=== PATIENT | male | born 2000 | race Caucasian/White ===

== ENCOUNTER 2023-05-03 11:09 | Emergency (ER) | payer BC, SELFPAY ==
[2023-05-03 11:09] VITALS: PULSE 85; RESP 16; TEMP 36.4; O2SAT 100
[2023-05-03 12:15] LABS: Appearance Urine Clear (Clear); Bilirubin Urine Negative (Negative); Blood Urine Negative (Negative); Color Urine Yellow (Yellow); Glucose Urine UA Negative (Negative); Ketones Urine Negative (Negative); Leukocyte Esterase Ur Negative LEU/UL (Negative); Nitrate Urine Negative (Negative); Protein Urine 2+ mg/dL (Negative); Specific Grav Ur >= 1.030 (1.001-1.035); Urobilinogen Urine 0.2 mg/dL (<2.0)
[2023-05-03 12:18] LABS: Add Urine Microscopic? YES
[2023-05-03 15:27] LABS: Chlamydia trachomatis NOT DETECTED (NOT DETECTE); Neisseria gonorrhoeae PCR NOT DETECTED (NOT DETECTE)
--- NOTE | 2023-05-03 15:33 | ED.MALEGU ---
HPI - Male Genitourinary General Chief complaint: Urogenital-Male Stated complaint: std check Time Seen by Provider: 05/03/23 11:21 History of Present Illness HPI Narrative: Patient is a 22-year-old male who presents ER with concerns for sexual transmitted infection. Reports he had sex with a woman 3 to 4 months ago and then discovered that she had potentially given other people STDs and potentially himself. He is unsure which one. No urinary frequency urgency or dysuria. No urethral discharge. No abnormal rash to glans or penile shaft. Related Data Allergies Allergy/AdvReac Type Severity Reaction Status Date / Time No Known Allergies Allergy Unverified 12/11/18 01:40 Review of Systems Genitourinary: Genitourinary: Reports no additional male genitourinary complaints Integumentary/Breasts: Skin/Breast: Reports system reviewed and no additional complaints, except as docu PMFSH Past Medical History Medical History (Updated 05/03/23 @ 18:43 by Tim Woodson MD) Healthy adult male Surgical History Surgical History (Updated 05/03/23 @ 18:43 by Tim Woodson MD) No history of previous surgery Exam Narrative: GENERAL: Well-appearing, well-nourished, and in no acute distress. HEAD: Normocephalic, atraumatic. EXTREMITIES: Normal range of motion. Normal strength. NEURO:eficits. Alert and oriented x3. PSYCH: Normal mood and affect. Course Course Emergency Course: STD testing negative. Patient discharged home. Vital Signs Vital signs: Vital Signs Temperature 97.5 F L 05/03/23 11:09 Pulse Rate 85 05/03/23 11:09 Respiratory Rate 16 05/03/23 11:09 Pulse Oximetry 100 05/03/23 11:09 Oxygen Delivery Room Air 05/03/23 11:09 Temperature 97.5 F L 05/03/23 11:09 Pulse Rate 85 05/03/23 11:09 Respiratory Rate 16 05/03/23 11:09 Pulse Oximetry 100 05/03/23 11:09 Oxygen Delivery Room Air 05/03/23 11:09 MDM - Male Genitourinary Lab Data Labs: Lab Results 05/03/23 Range/Units 12:07 Urine Color Yellow (Yellow) Urine Appearance Clear (Clear) Urine pH 6.0 (5.0-9.0) Ur Specific [place] >= 1.030 (1.001-1.035) Urine Protein 2+ H (Negative) mg/dL Urine Glucose (UA) Negative (Negative) mg/dL Urine Ketones Negative (Negative) mg/dL Ur Blood (Man) Negative (Negative) Urine Nitrate Negative (Negative) Urine Bilirubin Negative (Negative) Urine Urobilinogen 0.2 (<2.0) mg/dL Leukocyte Esterase Rfl Negative (Negative) AARON/UL C. trachomatis (PCR) Not detected (NOT DETECTE) N. gonorrhoeae (PCR) Not detected (NOT DETECTE) Urine Characteristics Clear Discharge Plan Discharge Clinical Impression: Concern about STD in male without diagnosis Patient Disposition: Home, Self-Care Condition: Stable Instructions: Safe Sex Practices (ED) Additional Instructions: There is no evidence of sexually transmitted infection on your evaluation today. Make sure that you use protection when having sex to prevent potential transmission. Return to the ER if you have additional concerns. Follow-up/Referrals: PHYSICIAN NOT ON STAFF,NONSTAFF [Primary Care Provider] - 1 Week Stand Alone Forms: Work/School Release IP
== END 2023-05-03 15:40 | disposition home or self-care (01) ==
PROVIDERS: Emergency Provider Emergency Medicine
DX: Z20.2 Contact with and (suspected) exposure to infections with a predominantly sexual mode of transmission (principal)
CPT/HCPCS: 81001; 87491; 87591; 99283

== ENCOUNTER 2025-04-11 16:05 | Emergency (ER) | payer BC, SELFPAY ==
[2025-04-11 16:12] VITALS: BP 141/98; PULSE 106; RESP 16; TEMP 36.4; O2SAT 97
--- OUTSIDE RECORDS SUMMARY | 2025-04-11 16:36 | XMS_ITS | Clinical Summary ---
Author Organization [facility] [employer] Address [address] [place] [address] Care Team Providers Care Bobbin Washer Name Role Phone Severino Jackson STATION MECHANIC APPRENTICE-GREASE REMOVER Unavailable [phone] Source Comments [facility] [employer],non-owned Affiliates and Associated Physician Practices is amultiple site organization consisting of ambulatory clinics and hospital sitesin [place], [place], [place] and [place]. This disclosure is being madepursuant to the Care Everywhere program and may not contain all information available regarding this patient. Last updated 18.[facility] Allergies No known active allergies Medications * This document contains information received from the source organization and may not represent a complete record from that organization. * Be aware that medications may not be up to date on this document. Alwaysverify current medications with the patient. FLUoxetine (PROzac) 40 MG capsule Take 1 (one) capsule by mouth once daily 30 capsule 01/08/2025 11:39 AM CDT 01/08/2025 Active Active Problems Problem Noted Date Diagnosed Date Suicide attempt 01/04/2025 Family History Medical History Relation Name Comments Arrhythmia Neg Hx CVA<55(male) Neg Hx CVA<65(female) Neg Hx Cardiomyopathy Neg Hx Congenital Heart defect Neg Hx Heart Surgery Neg Hx Long QT Syndrome Neg Hx [place]<55(male) Neg Hx [place]<65(female) Neg Hx Marfan Syndrome Neg Hx Pacemaker Neg Hx Sudd. <30 Neg Hx Social History Tobacco Use Types Packs/Day Years Used Date Smoking Tobacco: Never Alcohol Use Standard Drinks/Week Comments Not Asked 0 (1 standard drink = 0.6 oz pur e alcohol) AUDIT-C Answer Date Recorded Q1: How often do you have a drink containing alcohol? Never 01/04/2025 Q2: How many drinks containi ng alcohol do you have on a typical day when you are drinking? Patient does not drink Q3: How often do you have si x or more drinks on one occasion? Never 01/04/2025 Overall Financial Resource Strain (CARDIA) Answe r Date Recorded How hard is it for you to pa y for the very basics like food, housing, medical care, and heating? Somewhat hard 01/04/2025 [facility] [place] of Occupat ional Health - Occupational Stress Questionnaire Answer Date Recorded Do you feel stress - tense, restless, nervous, or anxious, or unable to sleep at night because your mind is troubled all the time - these days? Very much 01/04/2025 Hunger Vital Sign Answer Date Recorded Within the past 12 months, y ou worried that your food would run out before you got the money to buy more. Sometimes true Within the past 12 months, t he food you bought just didn't last and you didn't have money to get more. Sometimes true 06/2025 PRAPARE - Transportation Answer Date Re corded In the past 12 months, has l ack of transportation kept you from medical appointments or from getting medications? No 12/24 In the past 12 months, has l ack of transportation kept you from meetings, work, or from getting things needed for daily living? No 01/04/2025 Housing Stability Vital Sign Answer Chapito e Recorded In the last 12 months, was t here a time when you were not able to pay the mortgage or rent on time? Yes 01/04/2025 In the past 12 months, how m any times have you moved where you were living? 1 01/04/2025 At any time in the past [address] [facility], were you homeless or living in a penitentiary (including now)? 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 Gender Identity Not on file Sexual Orientation Not on file Last Filed Vital Signs Vital Sign Reading Time Taken Comments Blood Pressure 116/76 01/08/2025 8:21 AM CDT Pulse 78 01/08/2025 8:21 AM CDT Temperature 36.2 C (97.1 F) 01/08/2025 8:21 AM CDT Respiratory Rate 18 01/08/2025 8:21 AM CDT Oxygen Saturation 99% 01/08/2025 8:21 AM CDT Inhaled Oxygen Concentration - - Weight 103.8 kg (228 lb 13.4 oz) 03/25/2016 1:13 PM CDT Height 182.9 cm (6') 01/04/2025 5:56 PM CDT Body Mass Index 32.04 03/25/2016 1:13 PM CDT Plan of Treatment Health Maintenance Due Date Last Done Comments HIV SCREENING 2015 HPV VACCINE (1 - Male 3-dose series) 2015 HEPATITIS C SCREENING 08/14/2018 DTAP/TDAP/TD VACCINES (1 - Tdap) 2019 HEPATITIS B VACCINE (1 of 3 - 19+ 3-dose series) 2019 DEPRESSION SCREENING 07/26/2024 COVID-19 VACCINE (2 - 2024-2 6 season) 2025 07/31/2021 INFLUENZA VACCINE (#1) 2025 8, 05/28/2014, 05/26/2014 ZOSTER VACCINE (1 of 2) 2050 HIB VACCINE Aged Out No longer eligi ble based on patient's age to complete this topic MENINGOCOCCAL (Group B) VACCINE SHARED DECISION-MAKING Aged Out No longer eligible based on patient's age to complete this topic MENINGOCOCCAL GROUPS A/C/Y/W VACCINE Aged Out No longer eligible b ased on patient's age to complete this topic PNEUMOCOCCAL VACCINE Aged Out No long er eligible based on patient's age to complete this topic Insurance [facility] MEDICAID Advance Directives * Full Code (Latest Code Status on File) Date Activated Date Inactivated Comments 01/04/2025 5:10 PM 01/08/2025 3:19 PM Care Teams Bobbin Washer Relationship Specialty Start Date End Date Severino Jackson APRN-LIZETTE [address] [place] [phone] PCP - Attributed-BC[place] Medicaid [place] 01/23/21
--- NOTE | 2025-04-11 17:04 | ED_ITS ---
HPI - Back Pain/Injury General Chief Complaint: Back Pain/Injury Stated Complaint: back pain Time Seen by Provider: 04/11/25 16:36 Source: patient Mode of arrival: ambulatory Limitations: no limitations History of Present Illness HPI Narrative: 24 years old white male, works with a lot of heavy material including pushing and lifting for a while, developed left lower back pain radiating to the back of the left lower extremity intermittent numbness of the toes on the left side for 1 month, get worse at night 20 try to sleep. Patient denies any trauma. He denies any history of back pain in the past. Patient denies bowel dysfunction, bladder dysfunction, altered sensation, focal weakness, or saddle numbness, MD elicited complaint: back pain Related Data Allergies Allergy/AdvReac Type Severity Reaction Status Date / Time No Known Allergies Allergy Verified 04/11/25 16:14 Review of Systems Review of Systems: All systems reviewed & are unremarkable except as noted in HPI and below PMFSH Past Medical History Medical History Healthy adult male Surgical History Surgical History No history of previous surgery Exam Narrative: General appearance: Well-developed, well-nourished Skin: Normal color Head: Normocephalic, nontraumatic Eyes: Clear conjunctiva ENT: Oropharynx normal, ears normal, nose normal Neck: Supple, nontender Chest and respiratory: Airway patent, no respiratory distress, no accessory muscle use Heart: Regular rate/rhythm Abdomen: Soft, nontender, no organomegaly, quiet bowel sounds Vascular: Normal peripheral pulses, normal capillary refill. Musculoskeletal: Limited range of motion of the left lower extremity, tenderness left lower back, no bruises or swelling or rash Neurologic: Alert and oriented ?3, STRUCTURAL BIOLOGIST is normal as tested, no gross motor deficit, positive leg straight raising test Course Vital Signs Vital signs: Vital Signs Temperature 36.4 C 04/11/25 16:12 Pulse Rate 106 H 04/11/25 16:12 Respiratory Rate 16 04/11/25 16:12 Blood Pressure 141/98 H 04/11/25 16:12 Pulse Oximetry 97 04/11/25 16:12 Oxygen Delivery Room Air 04/11/25 16:12 Temperature 36.4 C 04/11/25 16:12 Pulse Rate 106 H 04/11/25 16:12 Respiratory Rate 16 04/11/25 16:12 Blood Pressure 141/98 H 04/11/25 16:12 Pulse Oximetry 97 04/11/25 16:12 Oxygen Delivery Room Air 04/11/25 16:12 MDM - Back Pain/Injury MDM Narrative Medical decision making narrative: Lumbar radiculopathy is my concern. Blood workup or imaging are not required at this time. Discharged on Decadron, follow-up with neurosurgeon Of work for 2 days Differential Diagnosis Differential diagnosis: Likely other (As above) Critical Care Time Critical Care Time Critical Care Time: No Discharge Plan Discharge Clinical Impression: Lumbar radiculopathy Patient Disposition: Home Condition: Stable Instructions: Lumbar Radiculopathy (ED) Additional Instructions: Return if symptoms are worsening , call your family physician for appointment, take Tylenol as as needed for aches and pain, continue home medications. Patient Language: Cambodian Prescriptions: New dexamethasone 4 mg tablet 4 mg PO TID Qty: 15 0RF Follow-up/Referrals: PHYSICIAN NOT ON STAFF,NONSTAFF [Non-Staff] Radha Leblanc MD [Physician, Neurosurgery] - 04/16/25 Stand Alone Forms: Work/School Release IP
--- OUTSIDE RECORDS SUMMARY | 2025-04-11 17:06 | XMS_ITS | Clinical Summary ---
Author Organization [facility] [employer] Address [address] [place] [address] Care Team Providers Care Hydroelectric Operator Name Role Phone Severino Jackson INDUSTRIAL WASTE INSPECTOR-PLUNGER SHOVEL OPERATOR Unavailable [phone] Source Comments [facility] [employer] [facility],non-owned Affiliates and Associated Physician Practices is amultiple site organization consisting of ambulatory clinics and hospital sitesin [place], [place], [place] and [place]. This disclosure is being madepursuant to the Care Everywhere program and may not contain all information available regarding this patient. Last updated 18.[employer] [facility] Allergies No known active allergies Medications * [...] Neg Hx Long QT Syndrome Neg Hx AL<55(male) Neg Hx AL<65(female) Neg Hx Marfan Syndrome Neg Hx Pacemaker [...] medical care, and heating? Somewhat hard 01/04/2025 [facility] [place] of Occupat ional Health - Occupational Stress [...] any time in the past 12 m [facility], were you homeless or living in a half-way (including now)? 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
[2025-04-11] MEDS: dexAMETHasone SOD PHOS INJ 10 MG/ML 1 ML VIAL IM (17:23)
== END 2025-04-11 17:30 | disposition home or self-care (01) ==
PROVIDERS: Emergency Provider Emergency Medicine
DX: M54.16 Radiculopathy, lumbar region (principal)
CPT/HCPCS: 96372; 99283; J1100

== ENCOUNTER 2025-04-20 15:27 | Emergency (ER) | payer BC, SELFPAY ==
--- NOTE | ~2025-04-20 | CT_ITS ---
EXAMINATION: CT lumbar spine wo con DATE: 04/20/2025 18:04 INDICATION: Lumbar pain TECHNIQUE: Computed tomography (CT) of the lumbar spine was performed without intravenous contrast. The dose-length product was 931.94 mGy-cm. Automated exposure control and iterative reconstruction technique were employed. COMPARISON: None FINDINGS: There is grade 1 spondylolisthesis at L5-S1 secondary to bilateral spondylolysis. There is disc narrowing at L5-S1. Vertebral body heights are maintained. The L4-5 disc spaces mildly decreased. No acute fracture or traumatic malalignment. There is mild dextrocurvature, possibly positional. IMPRESSION: 1. No acute abnormality of the lumbar spine. 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 3: Mild lumbar spondylosis. Reviewed, dictated and finalized at location O.
--- OUTSIDE RECORDS SUMMARY | 2025-04-20 15:29 | XMS_ITS | Clinical Summary ---
Author Organization [facility] [employer] Address [address] [place] [address] Care Team Providers Care Adjunct Latin Professor Name Role Phone Severino Jackson TOOL SETTER APPRENTICE-SOLAR WATER HEATER INSTALLER Unavailable [phone] Source Comments [facility] [employer],non-owned Affiliates and Associated Physician Practices is amultiple site organization consisting of ambulatory clinics and hospital sitesin [place], [place], [place] and [place]. This disclosure is being madepursuant to the Care Everywhere program and may not contain all information available regarding this patient. Last updated 18.[employer] Allergies No known active allergies Medications * [...] Neg Hx Long QT Syndrome Neg Hx AK<55(male) Neg Hx AK<65(female) Neg Hx Marfan Syndrome Neg Hx Pacemaker [...] medical care, and heating? Somewhat hard 01/04/2025 [facility] [place] of Occupat ional Health - Occupational Stress [...] any time in the past 12 m [facility], were you homeless or living in a correction (including now)? 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
[2025-04-20 15:42] VITALS: BP 123/71; PULSE 86; RESP 16; TEMP 36.2; O2SAT 96
--- OUTSIDE RECORDS SUMMARY | 2025-04-20 17:06 | XMS_ITS | Clinical Summary ---
Author Organization [facility] [employer] Address [address] [place] [address] Care Team Providers Care Ear Specialist Name Role Phone Severino Jackson BALLER TENDER-SCREEN TACKER Unavailable [phone] Source Comments [facility] [employer],non-owned Affiliates and Associated Physician Practices is amultiple site organization consisting of ambulatory clinics and hospital sitesin [place], [place], [place]. This disclosure is being madepursuant to the Care Everywhere program and may not contain all information available regarding this patient. Last updated 18.[employer] Allergies No known active allergies Medications * This document contains information received from the source organization and may not represent a complete record from that organization. * Be aware that medications may not be up to date on this document. Always verify current medications with the patient. FLUoxetine (PROzac) [...] Neg Hx Long QT Syndrome Neg Hx IA<55(male) Neg Hx IA<65(female) Neg Hx Marfan Syndrome Neg Hx Pacemaker [...] medical care, and heating? Somewhat hard 01/04/2025 [facility] [place] of Occupat ional Health - Occupational Stress [...] any time in the past 12 m [facility], were you homeless or living in a long term (including now)? 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
--- NOTE | 2025-04-20 17:27 | ED_ITS ---
HPI - Extremity Injury (Lower) General Chief Complaint: Extremity Injury, Lower Stated Complaint: left leg problems Time Seen by Provider: 04/20/25 16:56 Source: patient and old records reviewed Mode of arrival: ambulatory Limitations: no limitations History of Present Illness HPI Narrative: Patient is a 24-year-old male who presents the ED with report of left lower back pain, radiating down his left lower extremity. Reports pain has been ongoing for the past 2 weeks. Was seen in the ED here on 04/11, Rx'd dexamethasone, took this with improvement. Had to perform heavy/strenuous activity with work over the pas t 2 days and reports having worsening pain now. Reports pain present in his left lower back, radiates down his left lower extremity. Denies numbness/tingling, saddle anesthesia, bowel or bladder incontinence. Patient has not taken anything for pain today. Related Data Allergies Allergy/AdvReac Type Severity Reaction Status Date / Time No Known Allergies Allergy Verified 04/20/25 15:29 Review of Systems Review of Systems: All systems reviewed & are unremarkable except as noted in HPI. All systems reviewed & are unremarkable except as noted in HPI and below PMFSH Past Medical History Medical History Healthy adult male Surgical History Surgical History No history of previous surgery Exam Narrative: GENERAL: Well appearing, obese with BMI of 34.4, non-toxic, in no acute distress. HEAD: Normocephalic, atraumatic. RESPIRATORY: Airway patent, respirations nonlabored. CARDIOVASCULAR: Regular rate and rhythm without murmurs, rubs, or gallops. Pedal pulses intact. MUSCULOSKELETAL: Moves all extremities. No gross deformities. Positive straight leg raise on left. No significant reproducible tenderness throughout left lower extremity. Tenderness to palpation left SI region, left lumbar paraspinal musculature. No palpable bony deformities or step-offs. Sensation intact. SKIN: Warm, dry, normal color. NEURO: A&O X3. Speech clear. No ataxic movements. PSYCHIATRIC: Appropriate mood and affect. Normal interaction. Course Vital Signs Vital signs: Vital Signs Temperature 97.1 F L 04/20/25 15:42 Pulse Rate 86 04/20/25 15:42 Respiratory Rate 16 04/20/25 15:42 Blood Pressure 123/71 04/20/25 15:42 Pulse Oximetry 96 04/20/25 15:42 Temperature 97.1 F L 04/20/25 15:42 Pulse Rate 86 04/20/25 15:42 Respiratory Rate 16 04/20/25 15:42 Blood Pressure 123/71 04/20/25 15:42 Pulse Oximetry 96 04/20/25 15:42 MDM - Extremity Injury (Lower) MDM Narrative Medical decision making narrative: Patient?s pain is positional and localized to paraspinal muscles without signs of cord compression or cauda equina. Normal neurologic exams. No red flag symptoms. No fever noted and no significant risk factors for osteomyelitis or spinal epidural abscess. No symptoms or signs to suggest pain is referred from abdominal or source. CT of lumbar spine without acute findings, very mild spondylosis changes. Patient given Toradol, Tylenol, Robaxin, lidocaine patch in the ED. On re-evaluation, feeling somewhat improved. Patient ambulates with a steady gait and is felt to be a reasonable candidate for continued outpatient management. Discussed high likelihood of musculoskeletal etiology, continued management of such. Will discharge with muscle relaxers, lidocaine patches for home, advised patient to continue Tylenol/ibuprofen around the clock as needed for pain, recommended limiting strenuous activity. Given return precautions. Will again refer to neurosurgery. Discharged in stable condition. Medical Records Attestation: I reviewed the patient's medical records. Imaging Data Attestation: I personally reviewed and interpreted this imaging study as follows: Radiologist's impression: ITS Impressions Lumbar Spine CT 04/20/25 18:08 IMPRESSION: 1. No acute abnormality of the lumbar spine. 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 3: Mild lumbar spondylosis. Discharge Plan Discharge Clinical Impression: Left lumbar radiculopathy Strain of lumbar region Qualifiers: Encounter type: initial encounter Qualified Code(s): S39.012A - Strain of muscle, fascia and tendon of lower back, initial encounter Patient Disposition: Home Condition: Stable Instructions: Antibiotic Form, Low Back Strain (ED), Acute Low Back Pain (ED), Lumbar Radiculopathy (ED), Lower Back Exercises (ED) Additional Instructions: Continue Tylenol and Ibuprofen around the clock as needed for pain. You can take 1000 mg of Tylenol and 600 mg of ibuprofen every 6 hours. You may use ice/heat, lidocaine patches to area of pain. Take muscle relaxers as needed and prescribed. Recommend taking these at night as they may cause sedation. Do not drive, operate heavy machinery, drink alcohol while on muscle relaxers as this may cause further sedation. Limited heavy lifting/strenuous activity. Follow-up with your primary care doctor and/or neurosurgery for further evaluation. Return to the ED if you experience worsening or severe pain, recurrent injury, numbness in groin or legs, going to the bathroom without meaning to, unable to keep down food or drink, or any other symptoms of concern. Patient Language: Citizen Of [place] Prescriptions: New methocarbamol 750 mg tablet 1,500 mg PO TID PRN (Reason: muscle spasm) Qty: 15 0RF lidocaine 5 % adhesive patch,medicated 1 patch topical DAILY Qty: 15 0RF Rx Instructions: leave on most painful area for up to 12 hrs No Action dexamethasone 4 mg tablet 4 mg PO TID Qty: 15 0RF Follow-up/Referrals: PHYSICIAN,CHICKEN AND FISH CLEANER [Primary Care Provider, Internal Medicine] Radha Leblanc MD [Physician, Neurosurgery] Referral Note: NEUROSURGERY Time of Disposition: 19:06
--- NOTE | 2025-04-20 17:53 | PC.NURSE ---
Pt to CT at this time
[2025-04-20] MEDS: ACETAMINOPHEN 500 MG TABLET 1000 MG PO (18:05)
[2025-04-20] MEDS: LIDOCAINE 5% PATCH 1 PATCH TRANSDERM (18:06)
[2025-04-20] MEDS: KETOROLAC (*BKC) 60 MG/2 ML VIAL IM (18:06)
== END 2025-04-20 19:24 | disposition home or self-care (01) ==
PROVIDERS: Emergency Provider Physician Assistant
DX: S39.012A Strain of muscle, fascia and tendon of lower back, initial encounter (principal); M54.16 Radiculopathy, lumbar region; X58.XXXA Exposure to other specified factors, initial encounter
CPT/HCPCS: 72131; 96372; 99284; A9270; J1885